=== PATIENT | male | born 1970 | race Caucasian/White ===

== ENCOUNTER 2019-02-11 22:25 | Emergency (ER) | payer BC ==
[~2019-02-11] VITALS: Ht 188 cm; Wt 97.5 kg
--- NOTE | 2019-02-11 22:45 | NUR ---
PT BIBSELF WITH C/O FALL OF SCOOTER. NOTED WITH LEFT UPPER AND LOWER EYELID LACERATION, LEFT CHEEK AND SCALP. PT A/OX4. BREATHING EVEN AND UNLABORED. 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
--- NOTE | 2019-02-11 23:10 | NUR ---
PT TAKEN TO CT VIA TI[facility]
--- NOTE | 2019-02-11 23:17 | NUR ---
PT RETURNED FROM CT IN STABLE CONDITION
--- NOTE | 2019-02-11 23:18 | NUR ---
EMT AT BEDSIDE FOR WOUND CARE
[2019-02-11] MEDS: TDAP [DIPH/PERTUSSIS/TET] 0.5 ML VIAL IM ONE ×2 (23:30)
[2019-02-11] MEDS ORDERED: LIDOCAINE HCL/PF 1% 30 ML VIAL TP ONE (23:30)
[2019-02-11] MEDS ORDERED: LIDOCAINE 1% INJ 50 ML MDV IJ ONE (23:54)
[2019-02-11] MEDS ORDERED: TDAP [DIPH/PERTUSSIS/TET] 0.5 ML VIAL IM ONE (23:56)
--- NOTE | 2019-02-12 00:30 | NUR ---
ER PA AT BEDSIDE FOR SUTURE
--- NOTE | 2019-02-12 00:58 | NUR ---
Patient discharged to home in stable condition. Written and verbal after care instructions given. Patient verbalizes understanding of instruction. pt ambulatory with a steady gait.
[2019-02-12 01:03] VITALS: BP 119/54
== END 2019-02-12 01:08 | disposition home or self-care (01) ==
LOC: ER 22:29
DX: S01.01XA Laceration without foreign body of scalp, initial encounter (principal); S01.112A Laceration without foreign body of left eyelid and periocular area, initial encounter; S01.412A Laceration without foreign body of left cheek and temporomandibular area, initial encounter; S01.81XA Laceration without foreign body of other part of head, initial encounter; W05.2XXA Fall from non-moving motorized mobility scooter, initial encounter; Y93.89 Activity, other specified; Y92.89 Other specified places as the place of occurrence of the external cause; Y99.8 Other external cause status
CPT/HCPCS: 12002; 12013; 70450; 70486; 90471; 90715; 99284; A6403; J3490 ×2